=== PATIENT | male | born 1985 | race Asian ===

== ENCOUNTER 2019-11-03 13:15 | Emergency (ER) | payer SELFPAY ==
[~2019-11-03] VITALS: Ht 175.3 cm; Wt 61.4 kg
[2019-11-03 13:16] VITALS: BP 118/72
== END 2019-11-03 14:00 | disposition home or self-care (01) ==
LOC: EMS 13:18
DX: J06.9 Acute upper respiratory infection, unspecified (principal); Z20.828 Contact with and (suspected) exposure to other viral communicable diseases
CPT/HCPCS: 87635